=== PATIENT | female | born 1960 | race American Indian/Alaskan Native ===

== ENCOUNTER 2017-04-16 18:02 | Emergency (ER) | payer MEDICARE ==
[2017-04-16] MEDS ORDERED: ZOFRAN ODT ONE (18:55)
[2017-04-16] MEDS ORDERED: ZOFRAN ODT PO ONE (18:57)
[2017-04-16] MEDS ORDERED: TYLENOL PO ONE (19:36)
[2017-04-16] MEDS ORDERED: LIDODERM 5% TD ONE (21:40)
--- NOTE | 2017-04-17 00:33 | Emergency Department Report ---
HPI - General Chief Complaint: Back Pain/Injury Time Seen by Provider: 04/16/17 23:09 - HPI HPI: Patient reports that she's had chronic back pain and she is having a flare up. Complaining or right sided back pain that is 10 out of 10 and aching throbbing and cramping. Comes and goes. Reports nausea or vomiting. Denies any fever but reports that she has some chills. Pain is located to her right flank. Reports urinary frequency and urgency. Denies any urinary burning. Denies any abdominal pain. She says she took ibuprofen did not help. Patient says she sees Dr. Hicks primary care physician. Pain is worse with movement better with rest then. She says she is able to keep down some water. Patient reports she has a history of scoliosis and been having back pain on and off. She denies any history of kidney stones. ED Past Medical Hx - Past Medical History Previous Medical History?: Yes Hx Psychiatric Treatment: Yes (bipolar, schizophrenia) - Surgical History Past Surgical History?: Yes Additional Surgical History: D&C. hernia repair - Family History Family history: no significant - Social History Smoking Status: Current Every Day Smoker Substance Use Type: Alcohol - Medications Home Medications: Home Medications Medication Instructions Recorded Confirmed Last Taken Type Cephalexin [Keflex] 500 mg PO Q12HR #14 cap 12/15/15 Unknown Rx Famotidine [Pepcid] 20 mg PO BID #20 tablet 12/19/15 Unknown Rx diphenhydrAMINE [Benadryl CAP] 25 mg PO Q6HR PRN #20 capsule 12/19/15 Unknown Rx methylPREDNISolone [Medrol] 4 mg PO DAILY #1 tab.ds.pk 12/19/15 Unknown Rx Levofloxacin [Levaquin] 750 mg PO QDAY 10 Days #10 tablet 04/17/17 Unknown Rx Promethazine [Phenergan TAB] 25 mg PO Q8HR PRN #12 tab 04/17/17 Unknown Rx traMADol [Ultram 50 MG tab] 50 mg PO Q6HR PRN #8 tablet 04/17/17 Unknown Rx ED Review of Systems ROS: Stated complaint: back pain Other details as noted in HPI Comment: All other systems reviewed and negative Constitutional: chills ENT: denies: throat pain, congestion Respiratory: no symptoms reported Cardiovascular: denies: chest pain, palpitations, dyspnea on exertion, edema, syncope, paroxysmal nocturnal dyspnea Gastrointestinal: abdominal pain, nausea, vomiting. denies: diarrhea, constipation, hematemesis, melena, hematochezia Genitourinary: urgency, frequency. denies: dysuria, hematuria, discharge Musculoskeletal: back pain, myalgia. denies: joint swelling, arthralgia Skin: denies: rash, pruritus Neurological: other (denies loss of bowel or bladder function. Denies any numbness or tingling to her extremities.). denies: headache, weakness, numbness , paresthesias, confusion, abnormal gait, vertigo Physical Exam - Physical Exam Vital Signs: Vital Signs 04/16/17 18:06 Pulse Rate 66 Respiratory 16 Rate Blood Pressure 130/78 O2 Sat by Pulse 100 Oximetry Vital Signs 04/16/17 04/17/17 18:06 03:50 Temperature 99.1 F Pulse Rate 66 62 Respiratory 16 16 Rate Blood Pressure 130/78 Blood Pressure 128/73 [Right] O2 Sat by Pulse 100 99 Oximetry General: This is a 56-year-old female who is frail looking but alert and oriented. Nontoxic in appearance. Physical Exam: Head: Normocephalic, atraumatic, no abrasion, no bruising and no contusion. Eyes: Biateral pupils equal and reactive to light, bilateral EOM intact.. Bilateral conjunctival and sclera without injection, normal accommodation. No nystagmus Mouth: Moist, no pharyngeal exudate or erythema. No peritonsillar abscesses. Uvula is midline and oral airways patent. Neck: Supple, No Cervical adenopathy, full range of motion and no C-spine tenderness. No swelling or tracheal deviation normal reflexes Cardiovascular: S1, S2. Regular rate and rhythm. No murmur. Capillary refill is less then 3 seconds. Lungs: Clear to auscultate bilaterally. No rhonchi, wheezes or rales. No chest wall tenderness. No chest contusion. No bruising to chest. MSK: Strength 5/5 in all extremities. No joint deformity or crepitus. Normal inspection. Full range of motion to all extremities. No laceration, abrasion or ecchymotic area noted. Abdomen: Non-tender to palpate in all quadrants, no guarding or rebound tenderness, positive bowel sounds in all quadrants. Positive right CVA tenderness. No hernia, bruit or mass. No rigidity or distention. Extremities: No clubbing, cyanosis or edema. +2 pulses. No neurovascular compromise Skin: Clean, dry and intact. No rash or lesions. Neurological: GCS at 15, Pt is alert and oriented 3 speech is clear period. 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 Normal gait. Negative Romberg and no pronator drift. Normal Reflexes. No motor or sensory deficit Back: No vertebral tenderness, no paraspinal tenderness. Ambulates without any difficulties. Psych: Normal mood and behavior ED Course Vital Signs 04/16/17 18:06 Pulse Rate 66 Respiratory 16 Rate Blood Pressure 130/78 O2 Sat by Pulse 100 Oximetry Vital Signs 04/16/17 04/17/17 18:06 03:50 Temperature 99.1 F Pulse Rate 66 62 Respiratory 16 16 Rate Blood Pressure 130/78 Blood Pressure 128/73 [Right] O2 Sat by Pulse 100 99 Oximetry - Reevaluation(s) Reevaluation #1: 04/17/17 01:10 Patient received Tylenol 650 mg prior to being seen by myself. She also received Lidoderm patch to affected area on the right back. She received Zofran 8 mg ODT. I gave her Toradol 30 mg IM and Deltasone 60 mg by mouth. Patient had episode of nausea and vomiting. Reevaluation #2: 04/17/17 02:19 Patient received [place] 5/325 2 tablets by mouth, normal saline IV fluid 1 L, ceftriaxone 1 g IV. Reglan 10 mg IV. Patient would urinalysis positive for nitrite, 80+ ketones, 30+ protein, moderate leukocyte esterase and 4+ bacteria. She has positive CVA tenderness with nausea and vomiting and thus pyelonephritis. Reevaluation #3: 04/17/17 03:49 Patient is a tolerate oral liquids. She says she is feeling better and her pain is much better. I discussed patient that her urine drug screen is positive for cocaine and marijuana and she says she slipped up. I called her regarding polysubstance abuse and that she needs to refrain from taking cocaine and marijuana as this could be lethal and lead to . ED Medical Decision Making - Lab Data Result diagrams: 04/17/17 01:51 04/17/17 01:51 Lab Results 04/17/17 04/17/17 04/17/17 Range/Units 01:51 01:51 Unknown WBC 5.8 (4.5-11.0) K/mm3 RBC 4.70 (3.65-5.03) M/mm3 Hgb 14.3 (10.1-14.3) gm/dl Hct 42.2 (30.3-42.9) % MCV 90 (79-97) fl MCH 30 (28-32) pg MCHC 34 (30-34) % RDW 14.5 (13.2-15.2) % Plt Count 294 (140-440) K/mm3 Lymph % (Auto) 9.8 L (13.4-35.0) % [place] % (Auto) 1.7 (0.0-7.3) % Eos % (Auto) 0.0 (0.0-4.3) % Baso % (Auto) 0.3 (0.0-1.8) % Lymph # 0.6 L (1.2-5.4) K/mm3 [place] # 0.1 (0.0-0.8) K/mm3 Eos # 0.0 (0.0-0.4) K/mm3 Baso # 0.0 (0.0-0.1) K/mm3 Seg Neutrophils % 88.2 H (40.0-70.0) % Seg Neutrophils # 5.1 (1.8-7.7) K/mm3 Sodium 140 (137-145) mmol/L Potassium 4.0 (3.6-5.0) mmol/L Chloride 96.2 L (98-107) mmol/L Carbon Dioxide 26 (22-30) mmol/L Anion Gap 22 mmol/L BUN 14 (7-17) mg/dL Creatinine 0.6 L (0.7-1.2) mg/dL Estimated GFR > 60 ml/min BUN/Creatinine Ratio 23 % Glucose 129 H (65-100) mg/dL Calcium 9.5 (8.4-10.2) mg/dL Urine Color Yellow (Yellow) Urine Turbidity Clear (Clear) Urine pH 5.0 (5.0-7.0) Ur Specific [place] 1.027 (1.003-1.030) Urine Protein 30 mg/dl (Negative) mg/dL Urine Glucose (UA) Neg (Negative) mg/dL Urine Ketones 80 (Negative) mg/dL Urine Blood Neg (Negative) Urine Nitrite Pos (Negative) Urine Bilirubin Neg (Negative) Urine Urobilinogen < 2.0 (<2.0) mg/dL Ur Leukocyte Esterase Mod (Negative) Urine WBC (Auto) 51.0 H (0.0-6.0) /HPF Urine RBC (Auto) 11.0 (0.0-6.0) /HPF U Epithel Cells (Auto) 4.0 (0-13.0) /HPF Urine Bacteria (Auto) 4+ (Negative) /HPF Urine Opiates Screen Urine Methadone Screen Ur Barbiturates Screen Ur Phencyclidine Scrn Ur Amphetamines Screen U Benzodiazepines Scrn Urine Cocaine Screen U Marijuana (THC) Screen Drugs of Abuse Note 04/17/17 Range/Units Unknown WBC (4.5-11.0) K/mm3 RBC (3.65-5.03) M/mm3 Hgb (10.1-14.3) gm/dl Hct (30.3-42.9) % MCV (79-97) fl MCH (28-32) pg MCHC (30-34) % RDW (13.2-15.2) % Plt Count (140-440) K/mm3 Lymph % (Auto) (13.4-35.0) % [place] % (Auto) (0.0-7.3) % Eos % (Auto) (0.0-4.3) % Baso % (Auto) (0.0-1.8) % Lymph # (1.2-5.4) K/mm3 [place] # (0.0-0.8) K/mm3 Eos # (0.0-0.4) K/mm3 Baso # (0.0-0.1) K/mm3 Seg Neutrophils % (40.0-70.0) % Seg Neutrophils # (1.8-7.7) K/mm3 Sodium (137-145) mmol/L Potassium (3.6-5.0) mmol/L Chloride (98-107) mmol/L Carbon Dioxide (22-30) mmol/L Anion Gap mmol/L BUN (7-17) mg/dL Creatinine (0.7-1.2) mg/dL Estimated GFR ml/min BUN/Creatinine Ratio % Glucose (65-100) mg/dL Calcium (8.4-10.2) mg/dL Urine Color (Yellow) Urine Turbidity (Clear) Urine pH (5.0-7.0) Ur Specific [place] (1.003-1.030) Urine Protein (Negative) mg/dL Urine Glucose (UA) (Negative) mg/dL Urine Ketones (Negative) mg/dL Urine Blood (Negative) Urine Nitrite (Negative) Urine Bilirubin (Negative) Urine Urobilinogen (<2.0) mg/dL Ur Leukocyte Esterase (Negative) Urine WBC (Auto) (0.0-6.0) /HPF Urine RBC (Auto) (0.0-6.0) /HPF U Epithel Cells (Auto) (0-13.0) /HPF Urine Bacteria (Auto) (Negative) /HPF Urine Opiates Screen Presumptive negative Urine Methadone Screen Presumptive negative Ur Barbiturates Screen Presumptive negative Ur Phencyclidine Scrn Presumptive negative Ur Amphetamines Screen Presumptive negative U Benzodiazepines Scrn Presumptive negative Urine Cocaine Screen Presumptive positive U Marijuana (THC) Screen Presumptive positive Drugs of Abuse Note Disclamer Urine culture pending - Medical Decision Making ED course: She reported right flank pain. She was sent to have positive CVA tenderness, nausea vomiting in, complaining of chills. Positive urinary tract infection, urine positive for leukocyte Estrace, positive for nitrites, positive for bacteria and 4+. Urine positive for 80 ketones and 30 of protein. Patient found to have pyelonephritis. Her CBC and chemistry is stable. Patient also had urine drug screen done which is positive for cocaine and marijuana. I consult the patient on polysubstance abuse and inform her that using cocaine and marijuana can cause stroke, heart attack, kidney failure and/ or multiorgan failure and possible lead to . Patient said that she slipped up and used cocaine. She says she usually uses marijuana but she does not use cocaine everyday. Patient with dehydration and therefore she was given 1 L. Normal saline and able to tolerate oral liquids after nausea and vomiting controlled with Zofran and Reglan. She received 8 mg of Zofran ODT in triage and 10 mg Reglan IV and emergency room area. Patient received Rocephin 1 g IV for pyelonephritis. She had Lidoderm patch placed on right back area in triage here, Tylenol 650 mg by mouth in triage area which did not help her pain. After her lab results and urinalysis resulted and diagnosis of pyelonephritis, patient was given [place] 5/325 2 tablets for pain which relieved her pain. She said her pain is not unsupported at 10. I discussed diagnosis, treatment plan with patient and I told her that she'll need to follow-up with her primary care physician tomorrow follow pyelonephritis and I also counseled her that if she has returning symptoms include fever, increasing pain, inability to tolerate oral liquids, nausea and/or vomiting to return to the emergency room SHANIA otherwise follow up with her PCP in 24 hours. Patient discharged home a prescription for Ultram, Levaquin and Phenergan. Discharged home with her family from ED in stable condition. Critical care attestation.: If time is entered above; I have spent that time in minutes in the direct care of this critically ill patient, excluding procedure time. ED Disposition Clinical Impression: Acute pyelonephritis, Rt flank pain, Dehydration, Polysubstance abuse, Fever chills Nausea & vomiting Qualifiers: Vomiting type: unspecified Vomiting Intractability: non-intractable Qualified Code(s): R11.2 - Nausea with vomiting, unspecified Disposition: - TO HOME OR SELFCARE Is pt being admited?: No Does the pt Need Aspirin: No Condition: Stable Instructions: Acute Pyelonephritis (ED), Flank Pain (ED), Polysubstance Abuse ( ED), Dehydration (ED), Acute Nausea and Vomiting (ED), Fever in Adults (ED) Additional Instructions: Please increase her fluid intake to at least 2 L of water and/or cranberry juice daily Stop taking cocaine and marijuana as these substances can be lethal to your organs and lead to . Please follow up with her primary care physician in one day If your symptoms recur and or worsening symptoms return to the emergency room Take antibiotic as prescribed Please call your doctor in the morning and let them know that you're treated in the emergency room for kidney infection Prescriptions: Levofloxacin [Levaquin] 750 mg PO QDAY 10 Days #10 tablet Promethazine [Phenergan TAB] 25 mg PO Q8HR PRN #12 tab PRN Reason: Nausea traMADol [Ultram 50 MG tab] 50 mg PO Q6HR PRN #8 tablet PRN Reason: Pain Referrals: SKIP XIONG MD [Primary Care Provider] - 04/18/17
[2017-04-17] MEDS ORDERED: DELTASONE PO ONE (00:43)
[2017-04-17] MEDS ORDERED: TORADOL IM ONE (00:43)
[2017-04-17 01:39] LABS: Bacteria,Urine 4+ /HPF (Negative); Bilirubin,Urine NEG (Negative); Blood,Urine NEG (Negative); Color,Urine Yellow (Yellow); Urobilinogen,Urine < 2.0 mg/dL (<2.0)
[2017-04-17 01:45] LABS: Amphetamine Screen,Urine PRESUMPTIVE NEGATIVE; Benzodiazepines Screen,Urine PRESUMPTIVE NEGATIVE; Methadone Screen,Urine PRESUMPTIVE NEGATIVE; Opiate Screen,Urine PRESUMPTIVE NEGATIVE
[2017-04-17] MEDS ORDERED: REGLAN IV ONE (01:47)
[2017-04-17] MEDS ORDERED: NACL 0.9% 1000 ML 1,000 ML IV ONE (01:47)
[2017-04-17] MEDS ORDERED: NORCO 5/325 PO ONE (01:47)
[2017-04-17] MEDS ORDERED: cefTRIAXone 1 GM in NACL 0.9% 20 ML IV ONE (01:53)
[2017-04-17 01:58] LABS: Cannabinoid Screen,Urine PRESUMPTIVE POSITIVE; Cocaine Screen,Urine PRESUMPTIVE POSITIVE
[2017-04-17 02:09] LABS: Basophils % (Auto) 0.3 % (0.0-1.8); Hematocrit 42.2 % (30.3-42.9); Hemoglobin 14.3 gm/dl (10.1-14.3); Lymphocytes # (Auto) 0.6 K/mm3 (1.2-5.4); Lymphocytes % (Auto) 9.8 % (13.4-35.0); Mean Corpuscular HGB Conc 34 % (30-34); Mean Corpuscular Hemoglobin 30 pg (28-32); Mean Corpuscular Volume 90 fl (79-97); Monocytes # (Auto) 0.1 K/mm3 (0.0-0.8); Monocytes % (Auto) 1.7 % (0.0-7.3); Platelet Count 294 K/mm3 (140-440); Red Cell Distribution Width 14.5 % (13.2-15.2)
[2017-04-17 02:25] LABS: BUN/Creatinine Ratio 23; Blood Urea Nitrogen 14 mg/dL (7-17); Calcium 9.5 mg/dL (8.4-10.2); Hemolysis Index 1
[2017-04-17 03:51] VITALS: BP 128/73
== END 2017-04-17 04:30 | disposition home or self-care (01) ==
LOC: ED 18:02
DX: N10 Acute pyelonephritis (principal); E86.0 Dehydration; R11.2 Nausea with vomiting, unspecified; F31.9 Bipolar disorder, unspecified; F17.200 Nicotine dependence, unspecified, uncomplicated
CPT/HCPCS: 36415; 80048; 80307; 81001; 85025; 87086; 96365; 96372; 96375; 99283; J0696; J1885; J2765; J7030; J7512; 87076; 87186; Q0162

== ENCOUNTER 2017-08-14 15:04 | Outpatient (CLI) | payer MEDICARE ==
--- NOTE | 2017-08-15 15:48 | Mammography Report ---
BILATERAL DIGITAL SCREENING MAMMOGRAM with CAD : 08/14/17 15:04:00 CLINICAL: Routine screening.History of a benign left biopsy. COMPARISON:None available. Her last mammogram was in [place]. FINDINGS: The breasts are heterogeneously dense, which may obscure small masses.Breast density is also sufficient to limit the sensitivity of mammography. A left upper outer biopsy clip. No mass, architectural distortion or suspicious calcifications. IMPRESSION: No mammographic evidence of malignancy. BI-RADS CATEGORY: 2 -- Benign RECOMMENDATION: Routine mammographic screening in one year. COMMENT: Patient follow-up letters are generated by our [employer] application.
== END 2017-08-14 15:05 | disposition home or self-care (01) ==
LOC: MAMMO 15:04
PROVIDERS: ATTEND Family Medicine
DX: Z12.31 Encounter for screening mammogram for malignant neoplasm of breast (principal)
CPT/HCPCS: 77067

== ENCOUNTER 2019-04-30 19:10 | Emergency (ER) | payer MEDICARE ==
[2019-05-01] MEDS ORDERED: diphenhydrAMINE 50 MG/ML VIAL IV ONE (02:35)
[2019-05-01] MEDS ORDERED: KETOROLAC 30 MG/1 ML INJ IV ONE (02:35)
[2019-05-01] MEDS ORDERED: SODIUM CHLORIDE 0.9% 1000 ML 1,000 ML IV ONE (02:35)
[2019-05-01] MEDS ORDERED: dexAMETHasone 20 MG/5 ML VIAL IV ONE (02:35)
[2019-05-01] MEDS ORDERED: METOCLOPRAMIDE 10 MG/2 ML INJ IV PRN (02:35)
--- NOTE | 2019-05-01 03:41 | Emergency Department Report ---
ED Headache HPI - General Chief Complaint: Headache Stated Complaint: HEADACHE/CHILLS Time Seen by Provider: 05/01/19 02:27 - History of Present Illness Initial Comments: Patient is a 58-year-old female presents emergency room with complaints of a migraine headache that began a couple days ago. Patient states that she has a history of migraines and this feels similar to her prior migraines. She states that she usually takes ibuprofen for migraines which sometimes help resolve them. She states that she sees her primary care doctor for her migraines. She states that she has associated nausea. She denies any vomiting, diarrhea, fever, recent travel, numbness, weakness, vision changes. She states occasionally she feels tingling in her leg but that has since resolved currently. She has a past medical history of arthritis. She denies any allergies to medications. She states that she went through menopause. Allergies/Adverse Reactions: Allergies hair dye Allergy (Uncoded 12/15/15 10:03) Swelling Home Medications: Ambulatory Orders cephALEXin [Keflex] 500 mg PO Q12HR #14 cap 12/15/15 Famotidine [Pepcid] 20 mg PO BID #20 tablet 12/19/15 diphenhydrAMINE [Benadryl CAP] 25 mg PO Q6HR PRN #20 capsule 12/19/15 methylPREDNISolone [Medrol] 4 mg PO DAILY #1 tab.ds.pk 12/19/15 Promethazine [Phenergan TAB] 25 mg PO Q8HR PRN #12 tab 04/17/17 levoFLOXacin [Levaquin] 750 mg PO QDAY 10 Days #10 tablet 04/17/17 traMADoL [Ultram 50 MG tab] 50 mg PO Q6HR PRN #8 tablet 04/17/17 Butalb/Acetaminophen/Caffeine [Fioricet 50-300-40 mg CAP] 1 cap PO Q6HR PRN #10 cap 05/01/19 ED Review of Systems ROS: Stated complaint: HEADACHE/CHILLS Other details as noted in HPI Comment: All other systems reviewed and negative ED Past Medical Hx - Past Medical History Previous Medical History?: Yes Hx Arthritis: Yes Hx Headaches / Migraines: Yes Hx Psychiatric Treatment: Yes (bipolar, schizophrenia) - Surgical History Past Surgical History?: Yes Additional Surgical History: D&C, left hip. hernia repair - Social History Smoking Status: Current Every Day Smoker Substance Use Type: None - Medications Home Medications: Home Medications Medication Instructions Recorded Confirmed Last Taken Type cephALEXin [Keflex] 500 mg PO Q12HR #14 cap 12/15/15 Unknown Rx Famotidine [Pepcid] 20 mg PO BID #20 tablet 12/19/15 Unknown Rx diphenhydrAMINE [Benadryl CAP] 25 mg PO Q6HR PRN #20 capsule 12/19/15 Unknown Rx methylPREDNISolone [Medrol] 4 mg PO DAILY #1 tab.ds.pk 12/19/15 Unknown Rx Promethazine [Phenergan TAB] 25 mg PO Q8HR PRN #12 tab 04/17/17 Unknown Rx levoFLOXacin [Levaquin] 750 mg PO QDAY 10 Days #10 tablet 04/17/17 Unknown Rx traMADoL [Ultram 50 MG tab] 50 mg PO Q6HR PRN #8 tablet 04/17/17 Unknown Rx Butalb/Acetaminophen/Caffeine 1 cap PO Q6HR PRN #10 cap 05/01/19 Unknown Rx [Fioricet 50-300-40 mg CAP] ED Physical Exam - General Limitations: No Limitations General appearance: alert, in no apparent distress - Head Head exam: Present: atraumatic, normocephalic - Eye Eye exam: Present: normal appearance, PERRL, EOMI - ENT ENT exam: Present: mucous membranes moist - Respiratory Respiratory exam: Present: normal lung sounds bilaterally. Absent: respiratory distress, wheezes, rales, rhonchi, stridor, chest wall tenderness, accessory muscle use, decreased breath sounds, prolonged expiratory - Cardiovascular Cardiovascular Exam: Present: regular rate, normal rhythm, normal heart sounds. Absent: systolic murmur, diastolic murmur, rubs, gallop - Neurological Exam Neurological exam: Present: alert, oriented X3, CN II-XII intact, normal gait, other (normal finger to nose, normal heel to howe, 5/5 muscle strength in the BUE/BLE, sensation intact throughout). Absent: motor sensory deficit - Psychiatric Psychiatric exam: Present: normal affect, normal mood - Skin Skin exam: Present: warm, dry, intact ED Course Vital Signs 04/30/19 05/01/19 20:09 04:15 Temperature 98.6 F 97.7 F Pulse Rate 85 78 Respiratory 18 17 Rate Blood Pressure 104/69 Blood Pressure 104/76 [Right] O2 Sat by Pulse 97 99 Oximetry ED Medical Decision Making - Medical Decision Making Patient is a 58-year-old female presents emergency room with complaints of a migraine headache that began a couple days ago. Patient states that she has a history of migraines and this feels similar to her prior migraines. She states that she usually takes ibuprofen for migraines which sometimes help resolve them. She states that she sees her primary care doctor for her migraines. She states that she has associated nausea. She denies any vomiting, diarrhea, fever, recent travel, numbness, weakness, vision changes. She states occasional ly she feels tingling in her leg but that has since resolved currently. She has a past medical history of arthritis. She denies any allergies to medications. She states that she went through menopause. Vitals are normal. No neurological deficits, no abnormalities on physical examination as documented in chart. Patient given 1 L IV fluids, Decadron, Benadryl, Toradol, Reglan and symptoms completely improved. Patient's headache completely resolved. Patient given prescription for Fioricet. advised pt to please take medication as prescribed as needed. Please follow-up with your primary care doctor. Return to the emergency room for any new or worsening symptoms. - Differential Diagnosis Migraine headache, cluster headache, tension headache, SAH, CVA, sinusitis Critical care attestation.: If time is entered above; I have spent that time in minutes in the direct care of this critically ill patient, excluding procedure time. ED Disposition Clinical Impression: Migraine headache Qualifiers: Migraine type: unspecified Status migrainosus presence: without status migrainosus Intractability: not intractable Qualified Code(s): G43.909 - Migraine, unspecified, not intractable, without status migrainosus Disposition: DC-01 TO HOME OR SELFCARE Is pt being admited?: No Does the pt Need Aspirin: No Condition: Stable Instructions: Migraine Headache (ED) Additional Instructions: Please take medication as prescribed as needed. Please follow-up with your primary care doctor. Return to the emergency room for any new or worsening symptoms. Prescriptions: Butalb/Acetaminophen/Caffeine [Fioricet 50-300-40 mg CAP] 1 cap PO Q6HR PRN #10 cap PRN Reason: headache Referrals: PRIMARY CARE, [Referring] - 2-3 Days Time of Disposition: 03:40 Print Language: FRISIAN
[2019-05-01 07:18] VITALS: BP 104/76
== END 2019-05-01 04:15 | disposition home or self-care (01) ==
LOC: ED 19:10
DX: G43.909 Migraine, unspecified, not intractable, without status migrainosus (principal); M19.90 Unspecified osteoarthritis, unspecified site; F25.0 Schizoaffective disorder, bipolar type; F17.200 Nicotine dependence, unspecified, uncomplicated; Z91.041 Radiographic dye allergy status; Z98.890 Other specified postprocedural states; Z79.899 Other long term (current) drug therapy
CPT/HCPCS: 96374; 96375; 99282; J1100; J1200; J1885; J2765; J7030